=== PATIENT | female | born 2000 | race Two or more races ===

== ENCOUNTER 2024-05-09 19:16 | Emergency (ER) | payer MEDICAID, SELFPAY ==
[2024-05-09 19:17] VITALS: BMI 35.6
--- NOTE | 2024-05-09 20:07 | XR_ITS ---
Examination: Abdomen sonogram, Limited Date and time of exam: May 09, 2024 2016 hrs. Indications: Epigastric pain and nausea beginning today Technique: Real-time kumar scale transabdominal sonographic images of the upper abdomen obtained. Findings: Normal gallbladder Normal common bile duct 0.3 cm Pancreatic head 2.0 cm Liver 16.3 cm fatty infiltration no focal liver lesions Normal hepatopedal portal venous flow Patent IVC Impression: Normal gallbladder Fatty liver
--- NOTE | 2024-05-09 20:07 | PD.EDRME ---
Rapid Medical Screening Exam RME Arrival date/time: 05/09/24 19:16 Chief Complaint: Abdominal Pain Time Seen by Provider: 05/09/24 19:20 Vital signs: Vital Signs Temperature 98.6 F 05/09/24 20:08 Pulse Rate 71 05/09/24 20:08 Respiratory Rate 20 05/09/24 20:08 Blood Pressure 130/85 H 05/09/24 20:08 Pulse Oximetry (%) 98 05/09/24 20:08 Oxygen Delivery Method Room Air 05/09/24 20:08 [facility] Narrative: Epigastric pain, nausea since yesterday.
[2024-05-09 20:08] VITALS: BP 130/85; PULSE 71; RESP 20; TEMP 37; O2SAT 98
[2024-05-09 21:10] LABS: Collection Type, Urine Clean Catch
[2024-05-09 21:31] VITALS: BP 137/87; PULSE 63; RESP 18; TEMP 36.4; O2SAT 100
[2024-05-09 21:47] LABS: Bilirubin,Urine Negative (Negative); Blood,Urine Negative (Negative); Clarity,Urine Turbid (Clear/Hazy); Color,Urine Lt-Yellow (Lt Yel-Yel); Glucose, Urine Negative (Negative); Ketones,Urine Negative (Negative); Leukocyte Esterase,Urine Negative (Negative); Nitrite,Urine Negative (Negative); Protein,Urine Negative (Neg - Trace); RBC,Urine 9 /hpf (0-3); Specific Gravity,Urine 1.031 (1.001-1.035); Squamous Epithelial Cell,Urine 15 /hpf (0-5); Urobilinogen,Urine Negative mg/dL (0.0-1.0); WBC,Urine 2 /hpf (0-5)
[2024-05-09 21:57] LABS: Basophils # (Auto) 0.1 Thou/mm3 (0.0-0.2); Basophils % (Auto) 0 % (0-2.5); Eosinophils # (Auto) 0.1 Thou/mm3 (0.0-0.5); Eosinophils % (Auto) 1 % (0-10); Hematocrit 36.8 % (36.0-46.0); Immature Granulocytes % (Auto) 0 % (0-0); Immature Granulocytes Auto 0.04 Thou/mm3 (0.00-0.00); Lymphocytes # (Auto) 2.1 Thou/mm3 (1.0-4.8); Lymphocytes % (Auto) 16 % (10-50); Mean Corpuscular HGB Conc 32.6 g/dl (31.0-37.0); Mean Corpuscular Hemoglobin 26.5 pg (25.0-35.0); Mean Corpuscular Volume 81 fL (80-100); Monocytes # (Auto) 0.6 Thou/mm3 (0.0-0.8); Monocytes % (Auto) 4 % (0-12); Neutrophils # (Auto) 10.1 Thou/mm3 (1.8-7.7); Neutrophils % (Auto) 78 % (37-80); Nucleated Red Blood Cell % 0 /100 WBC (0); Platelet Count 201 Thou/mm3 (140-440); RDW Standard Deviation 39.5 fL (36.4-46.3); Red Blood Count 4.53 Miln/mm3 (4.00-5.20); White Blood Count 12.9 Thou/mm3 (3.6-11.0)
[2024-05-09 21:58] LABS: HCG Qualitative,Urine Negative
[2024-05-09 22:39] LABS: Alanine Aminotransferase 9 U/L (10-49); Albumin/Globulin Ratio 1.8 (1.2-2.2); Alkaline Phosphatase 53 U/L (46-116); Anion Gap 8 (7-16); Aspartate Amino Transferase < 10 U/L (0-34); BUN/Creatinine Ratio 15 Ratio (12-20); Bilirubin,Total 0.2 mg/dL (0.3-1.2); Blood Urea Nitrogen 12 mg/dL (9-23); Calcium 9.7 mg/dL (8.3-10.6); Calcium (Corrected) 9.7 mg/dL (8.5-10.1); Chloride 102 mMol/L (98-107); Creatinine (Component) 0.8 mg/dL (0.6-1.3); Estimated Creatinine Clearance 130.7 mL/min (>60); Globulin 2.8 gm/dL (2.3-3.5); Glucose 108 mg/dL (74-106); Lipase 49 U/L (12-53); Osmolality,Calculated 272 (275-295); Potassium 4.2 mMol/L (3.4-5.1); Sodium 136 mMol/L (136-145); Total Protein 7.8 gm/dL (5.7-8.2); eGFR > 60 See Note
--- NOTE | 2024-05-09 23:38 | XR_ITS ---
Examination: CT abdomen with intravenous contrast CT pelvis with intravenous contrast 2-D coronal reconstructions 2-D sagittal reconstructions Date and time of exam:May 10, 2024 at 0023 hours INDICATIONS: Onset abdominal pain nausea vomiting today. CTDI: vol (mGy) 13.51 DLP: (mGycm) 864 Technique: Multiple axial sections of the abdomen and pelvis have been obtained. 64 slice high-resolution scanner used. 3 mm axial sections have been obtained, post intravenous injection 60 cc [id number] 2-D sagittal, coronal reconstructions obtained. Low dose protocols were performed. One or more of the following dose reduction techniques were used; automated exposure control, adjustment of the mA and/or KV according to patient size, use of iterative reconstruction technique. Findings: No focal liver or splenic lesions Gastric sutures No gallstones No pancreatic or adrenal mass No renal or ureteral calculi, no hydronephrosis Aorta normal size Appendix measures 6 cm, no periappendiceal inflammatory change No pelvic abscess No bowel obstruction 6 cm left pelvic cyst Urinary bladder intact IMPRESSION: Minimal thickening of the appendix but no findings diagnostic for acute appendicitis Recommend pelvic sonography to assess the 6 cm left pelvic cystic mass
--- NOTE | 2024-05-09 23:40 | EDNOTE_ITS ---
ED Abdominal Pain RME/HPI General Chief Complaint: Abdominal Pain Stated complaint: abdominal pain, NV x 1 day Time seen by provider: 05/09/24 19:20 Arrival date/time: 05/09/24 19:16 RME / HPI RME / HPI narrative: Chief complaint: Epigastric pain, nausea since yesterday. HPI: Patient is a 24-year-old female with past medical history of gastric sleeve and obesity, who presented to the ED due to progressively worsening RUQ and epigastric pain which began around 10 AM today. Patient also has associated nausea, but no episodes of vomiting. Patient denies chest pain or dyspnea. No fevers, shakes, chills, sweats. Patient never had any of the symptoms in the past. She has irregular menstrual cycles, is sexually active. Her last bowel movement was around 7 AM on 05/09/2024. Patient is status post gastric sleeve and was concerned that this pain was involved with her prior surgery. No constipation. Allergies: NKFDA Social history: Marital?Status:?Single Tobacco?Use:?Denies ETOH?Use:?Denies Drug?Note:?Denies Social?History?Note:?Lives?at home with family Family history: Denies any family history of gastric/colon cancer, no sudden deaths. Related Data Previous Rx's ?Medication ?Instructions ?Recorded cyclobenzaprine 5 mg tablet 5 mg PO TID PRN muscle spasm #20 02/18/18 tabs naproxen 500 mg tablet 500 mg PO BID #20 tabs 02/18/18 ibuprofen 800 mg tablet 800 mg PO TID PRN pain #30 tabs 08/18/22 aluminum-mag hydroxide-simethicone 10 ml PO TID PRN indigestion #300 05/10/24 400 mg-400 mg-40 mg/5 mL oral susp mL (Antacid Anti-Gas) famotidine 20 mg tablet (Pepcid) 20 mg PO QDAY 10 days #10 tabs 05/10/24 Allergies Allergy/AdvReac Type Severity Reaction Status Date / Time No Known Allergies Allergy Verified 08/18/22 10:48 Review of Systems Review of Systems Narrative Review of Systems: GENERAL: Denies fevers/chills or diaphoresis. HEENT: Denies headache or visual/hearing changes. Denies nasal discharge. NEURO: Denies unusual weakness or difficulty speaking. CARDIO: Denies chest pain or palpitations. PULM: Denies SOB, coughing, or wheezing. GI: abdominal pain, nausea, no V/C/D. Reports having BMs URO: Denies burning/itching/pain/urinary changes. HOT WALKER: Denies menstrual changes, hot flashes. MSK/EXT/SKIN: Denies joint/skeletal/muscle pain, issues/changes in upper or lower extremities, itchiness, or superficial pain. PSYCH: Cooperative, pleasant mood & affect. The rest of the review of systems is otherwise negative. ED Exam Narrative Physical exam: GENERAL APPEARANCE: alert and oriented x 4, well-developed, well-nourished, no acute distress VITALS: All vitals were reviewed and the pulse ox is 100% on room air, which is normal according to my interpretation. HEENT: Normocephalic, atraumatic; pupils equal, round, reactive to light; EOMI; mucous membranes pink, moist; oropharynx clear NECK: Supple LUNGS: CTABL; no wheezes, no rales, no rhonchi HEART: Regular rate, regular rhythm; normal S1, S2; no murmurs ABDOMEN: non distended; normal BS; soft, no RLQ or suprapubic tenderness, no guarding, no rebound; no masses, no organomegaly, no hernia BACK: no CVA tenderness EXTREMITIES: atraumatic; no edema NEUROLOGIC: awake; alert and oriented x4; cranial nerves II-XII grossly intact; no focal sensory or motor deficits PSYCHIATRIC: appropriate mood and affect SKIN: warm, dry, normal color; no rashes Course Quality Measures none Orders Category Date Time Status CT Screening NOW Care 05/09/24 23:[address] abdomen pelvis w con Stat Exams 05/09/24 23:38 Taken US gall bladder Stat Exams 05/09/24 20:07 Completed CBC Stat Lab 05/09/24 21:35 Completed CMP [Comprehensive Metabolic Panel] Stat Lab 05/09/24 21:35 Completed HCG Qualitative,Urine Stat Lab 05/09/24 20:59 Completed Lipase Stat Lab 05/09/24 21:35 Completed UA [Urinalysis] Stat Lab 05/09/24 20:59 Completed Morphine Inj Med 05/09/24 23:58 Discontinued 2 mg IVP X1 ONE Piper/Tazo Inj [Zosyn Inj] 3.375 gm Med 05/10/24 01:39 Discontinued Sodium Chloride 0.9% (P) [Ns 0.9% (P)] 50 ml IV X1 Vital Signs Vital signs: Vital Signs Temperature 98.6 F 05/09/24 20:08 Pulse Rate 71 05/09/24 20:08 Respiratory Rate 20 05/09/24 20:08 Blood Pressure 130/85 H 05/09/24 20:08 Pulse Oximetry (%) 98 05/09/24 20:08 Oxygen Delivery Method Room Air 05/09/24 20:08 Abdominal Pain MDM MDM Narrative MDM Narrative:: Plan: Dr Hamilton to re-evaluate in the morning re: need to surgic Patient came to the emergency department with epigastric and periumbilical pain, acute onset with nausea but no vomiting. No other associated symptoms such as fever, shakes, chills, sweats, chest pain or dyspnea. Patient arrived with normal vital signs and remained with stable and normal vital signs throughout. Patient's exam was not particularly impressive for abdominal tenderness. A workup was ordered which included blood work, urine as well as a CT abdomen pelvis. Patient's CT was read by the radiologist as possibly showing a early appendicitis . On reexam the patient remains without right lower quadrant tenderness or tenderness throughout the abdomen. Patient was feeling better after medications and she was discharged home with strict instructions to return if she worsens or she does not improve by the morning, instructions to follow-up with her primary care doctor within the next several days. Etiology of the patient's pain remains unclear but she is clinically stable for discharge at this time Patient data External records reviewed:: None Clinical information provided by:: patient Social determinants that could affect healthcare access:: none Patient has the following chronic illnesses:: NIL How is presenting disease/condition affected by chronic disease/condition?: no chronic disease Evaluation data The following diagnostics were reviewed and interpreted by me:: lab results and radiology exam(s) Lab and/or radiology exams considered but not ordered:: none Interpretation Summary: Telerad Preliminary Report Draft Patient: SHUBHAM WOOD Record#: [id number] Birthdate: 2000 Age/Sex: 24 / F Location: [facility] Attending Dr: Ordering Physician: Date of Service: Procedure(s): Accession Number(s): cc: ~ CT scan of the abdomen and pelvis with intravenous contrast (axial sections with sagittal and coronal reformats) May 10, 2024 at 0023 hours Clinical History: Abdominal pain Comparison: No prior study is available for comparison. Findings: The lung bases are clear. The liver, gallbladder, pancreas, spleen, kidneys and adrenals are unremarkable. No evidence of bowel obstruction. Prominent distal tip of the appendix measuring 0.8 cm without peripheral fat stranding, no perforation, no collections. There is no mesenteric or retroperitoneal adenopathy. The urinary bladder is unremarkable. There is no free fluid or free air. The osseous structures are unremarkable. Status post gastric sleeve surgery. The uterus and ovaries are within normal limits. Impression: Possible early acute appendicitis. Please, correlate clinically. Discussion Details: Results verbally communicated to : Dr. Irby at 01:24 AM 05/10/2024 Report Electronically Signed By: Samuel Martin 05/10/2024 1:28:15 AM [EST] Medications / Prescriptions Medications or Prescriptions considered but not ordered:: Dilaudid Medication administrations:: Medication Administration History Discontinued Medications Piperacillin Sod/Tazobactam (Sod 3.375 gm/ Sodium Chloride) 50 mls @ 100 mls/hr IV X1 ONE Stop: 05/10/24 02:08 Last Admin: 05/10/24 02:11 Dose: 100 mls/hr Documented By: MANDO Morphine Sulfate (Morphine Sulf Inj 10 Mg/Ml Vial) 2 mg IVP X1 ONE Stop: 05/09/24 23:59 Last Admin: 05/10/24 00:10 Dose: 2 mg Documented By: MANDO see above Consultations Consultation(s) initiated? (list below): Yes Consultation #1 (Physician, Specialty, Details): Discussed case with [Dr. Winters] from [general surgery] regarding [consultation]. Discussed patients ED course, exam findings, labs, and radiology results. Recommends discharging the patient and having her come back for a recheck if her symptoms persist. Time: 02:18 Diagnosis Differential diagnosis abdominal pain: abdominal pain, constipation, diverticulitis, gastroenteritis and small bowel obstruction Most likely diagnosis given after review of the tests above:: see below Admission Indicated Admission indicated?: not indicated Admission Request Was there a request for admission?: No Disposition Plan Disposition Plan: Discharge Discharge Attestation Discharge Attestation: The patient and all family members were given an opportunity to ask questions and understood the discharge instructions. Discharge instructions specifically effects, indications for sooner follow up or return to the emergency department, and the expected course of current diagnosis. Patient condition: Stable Discharge Plan Plan Patient Disposition: HOME (Self Care) Disposition Comment: Stable for discharge Patient condition on transfer: Stable Prescriptions/Referrals Prescriptions/Med Rec: New famotidine [Pepcid] 20 mg tablet 20 mg PO QDAY 10 Days Qty: 10 0RF alum-mag hydroxide-simeth [Antacid Anti-Gas] 400-400-40 mg/5 mL suspension 10 ml PO TID PRN (Reason: indigestion) Qty: 300 0RF No Action naproxen 500 mg tablet 500 mg PO BID Qty: 20 0RF cyclobenzaprine 5 mg tablet 5 mg PO TID PRN (Reason: muscle spasm) Qty: 20 0RF ibuprofen 800 mg tablet 800 mg PO TID PRN (Reason: pain) Qty: 30 0RF Referrals: Milton Vasquez MD [Primary Care Provider] - In 1 week Problem List Clinical Impression: Abdominal pain Patient/Caregiver Discharge Instructions Discharge Activity: activity as tolerated Education Materials: Abdominal Pain Additional Instructions: Please return to the emergency department if you are not improving within 48 hours or if you are worsening in any way. You should pay attention to your body as you know yourself better than anybody. If you have nausea with vomiting or worsening belly pain tomorrow morning you should return to the ER Otherwise you should follow-up with your primary care doctor within the next s everal days Print Language: Icelandic Stand Alone Forms: [employer] Info., Patient Portal Info Letter
[2024-05-10 00:01] VITALS: BP 136/76; PULSE 71; RESP 19; TEMP 36.8
[2024-05-10] MEDS: MORPHINE SULF INJ 10 MG/ML VIAL 2 MG IVP (00:10)
--- NOTE | 2024-05-10 01:29 | PRELIM_ITS ---
CT scan of the abdomen and pelvis with intravenous contrast (axial sections with sagittal and coronal reformats) May 10, 2024 at 0023 hoursClinical History: Abdominal pain Comparison: No prior study is available for comparison.Findings:The lung bases are clear.The liver, gallbladder, pancreas, sple en, kidneys and adrenals are unremarkable.No evidence of bowel obstruction.Prominent distal tip of th e appendix measuring 0.8 cm without peripheral fat stranding, no perforation, no collections. There i s no mesenteric or retroperitoneal adenopathy.The urinary bladder is unremarkable. There is no free f luid or free air.The osseous structures are unremarkable.Status post gastric sleeve surgery.The uteru s and ovaries are within normal limits.Impression:Possible early acute appendicitis.Please, correlate clinically.Discussion Details: Results verbally communicated to : Dr. Irby at 01:24 AM 05/10/2024 Report Electronically Signed By: Samuel Martin 05/10/2024 1:28:15 AM [EST]
[2024-05-10] MEDS: PIPER/TAZO INJ 3.375 GM in SODIUM CHLORIDE 0.9% (P) 50 ML IV (02:11)
[2024-05-10 03:02] VITALS: BP 117/83; PULSE 71; RESP 18; TEMP 36.7; O2SAT 100
== END 2024-05-10 03:03 | disposition home or self-care (01) ==
PROVIDERS: Physician Assistant; Emergency Provider Emergency Medicine; PCP Family Medicine
DX: R10.13 Epigastric pain (principal); R11.2 Nausea with vomiting, unspecified
CPT/HCPCS: 36415; 74177; 76705; 80053; 81001; 81025; 83690; 85025; 96374; 99285; A4649; J2270; J2543; J7050; Q9967

== ENCOUNTER 2024-10-13 00:25 | Emergency (ER) | payer MEDICAID, SELFPAY ==
[2024-10-13 00:27] VITALS: BMI 36.4
[2024-10-13 00:33] VITALS: BP 125/76; PULSE 83; RESP 16; TEMP 37.2; O2SAT 100
[2024-10-13 01:44] LABS: Collection Type, Urine Clean Catch
[2024-10-13 02:09] LABS: Bacteria,Urine Rare; Bilirubin,Urine Negative (Negative); Blood,Urine Negative (Negative); Clarity,Urine Turbid (Clear/Hazy); Color,Urine Yellow (Lt Yel-Yel); Culture Indicated,Urine Contaminated; Glucose, Urine Negative (Negative); Ketones,Urine Negative (Negative); Leukocyte Esterase,Urine Positive (Negative); Nitrite,Urine Negative (Negative); Protein,Urine 1+ (Neg - Trace); RBC,Urine 64 /hpf (0-3); Specific Gravity,Urine 1.029 (1.001-1.035); Squamous Epithelial Cell,Urine 27 /hpf (0-5); Urobilinogen,Urine Negative mg/dL (0.0-1.0); WBC,Urine 131 /hpf (0-5)
[2024-10-13 02:13] LABS: HCG Qualitative,Urine Negative
[2024-10-13] MEDS: cefuroxime axetiL 250 MG TABLET 500 MG PO (02:29)
[2024-10-13 02:33] VITALS: RESP 18
--- NOTE | 2024-10-13 04:30 | EDNOTE_ITS ---
<Statement entered by Olga Grossman MD - 10/24/24 21:10> As co-signing physician, I was present and available for consult prn. I concur with the plan and care as documented by the midlevel provider. ED Female Urogenital RME/HPI General Chief complaint: Urogenital-Female Stated complaint: I FEEL LIKE I HAVE A UTI Time Seen by Provider: 10/13/24 00:49 Arrival date/time: 10/13/24 00:25 24F with no significant PMH presents to ED with 1 week of dysuria. Patient recently finished a course of Bactrim and yeast infection treatment w/o relief. Limitations: no limitations Related Data Previous Rx's ?Medication ?Instructions ?Recorded cyclobenzaprine 5 mg tablet 5 mg PO TID PRN muscle spa sm #20 02/18/18 tabs naproxen 500 mg tablet 500 mg PO BID #20 tabs 02/18 ibuprofen 800 mg tablet 800 mg PO TID PRN pain #30 t abs 08/18/22 aluminum-mag hydroxide-simethicone 10 ml PO TID PRN in digestion #300 05/10/24 400 mg-400 mg-40 mg/5 mL oral susp mL (Antacid Anti-Gas) cefuroxime axetil 500 mg tablet 500 mg PO BID 7 days # 14 tabs 10/13/24 Allergies Allergy/AdvReac Type Severity Reaction Status Date / Time No Known Allergies Allergy Verified 10/13/24 00:27 Review of Systems Review of Systems Systems Reviewed: All systems reviewed, normal except as documented Constitutional Constitutional: Reports system reviewed and no additional complaints, except as documented, Denies fever(s) and Denies headache(s) ENT Ears, Nose, Mouth, and Throat: Denies disequilibrium and Denies headache(s) Cardiovascular Cardiovascular: Reports system reviewed and no additional complaints, except as documented, Denies chest pain and Denies dyspnea Respiratory Respiratory: Reports system reviewed and no additional complaints, except as documented, Denies cough and Denies dyspnea Gastrointestinal Gastrointestinal: Reports system reviewed and no additional complaints, except as documented, Denies abdominal pain, Denies nausea and Denies vomiting Genitourinary Genitourinary: Reports as per HPI and Reports dysuria Neurologic Neurologic: Reports system reviewed and no additional complaints, except as documented, Denies confusion, Denies disequilibrium and Denies headache(s) Psychiatric Psychiatric: Denies confusion Past Medical History Past Medical History CARDIAC: Negative Cardiac Disorders or Congestive Heart Failure RESPIRATORY: Negative Chronic Obstructive Pulmonary Disease (COPD) or Asthma GENITOURINARY: Negative Renal Disease ENDOCRINE: Negative Diabetes Mellitus Type 1 or Diabetes Mellitus Type 2 HEMATOLOGIC: Negative Sickle Cell Disease Social History SMOKING STATUS: Never smoker SECOND HAND EXPOSURE: No ED Exam General Limitations: Present no limitations General appearance: Present alert and in no apparent distress Head Head exam: Present atraumatic Eye Eye exam: Present normal appearance, PERRL and EOMI ENT ENT exam: Present normal exam, normal oropharynx and mucous membranes moist Neck Neck exam: Present normal inspection, full ROM and trachea midline Chest Chest inspection: Present normal inspection and symmetric chest wall rise Respiratory Respiratory exam: Present normal lung sounds bilaterally Cardiovascular Cardiovascular exam: Present regular rate, normal rhythm and normal heart sounds Abdominal Exam Abdominal exam: Present soft and normal bowel sounds Extremities Exam Extremities exam: Present normal inspection and full ROM Back Exam Back exam: Present normal inspection and full ROM Neurological Exam Neurological exam: Present alert, oriented X3 and CN II-XII intact Psychiatric Psychiatric exam: Present normal affect and normal mood Skin Skin exam: Present warm, dry, intact and normal color Course Quality Measures none Orders Category Date Time Status HCG Qualitative,Urine Stat Lab 10/13/24 01:28 Completed Urinalysis, C/S if Indicated Stat Lab 10/13/24 01:28 Completed cefuroxime axetiL [cefUROXime axetil] Med 10/13/24 02:19 Discontinued 500 mg PO X1 ONE Vital Signs Vital signs: Vital Signs Temperature 99.0 F 10/13/24 00:33 Pulse Rate 83 10/13/24 00:33 Respiratory Rate 16 10/13/24 00:33 Blood Pressure 125/76 10/13/24 00:33 Pulse Oximetry (%) 100 10/13/24 00:33 Oxygen Delivery Method Room Air 10/13/24 00:33 O2 at 100% on RA and WNLs Urogenital - Female MDM Narrative MDM Narrative:: 24F with no significant PMH presents to ED with 1 week of dysuria. Patient recently finished a course of Bactrim and yeast infection treatment w/o relief. Physical exam reveals well-appearing female. Patient is afebrile, calm, and alert. UA, though contaminated, suggests UTI. Will treat given symptoms. Patient data External records reviewed:: [facility] previous records Clinical information provided by:: patient Social determinants that could affect healthcare access:: none Patient has the following chronic illnesses:: none How is presenting disease/condition affected by chronic disease/condition?: no chronic disease Evaluation data The following diagnostics were reviewed and interpreted by me:: lab results Lab and/or radiology exams considered but not ordered:: ordered Interpretation Summary: above Medications / Prescriptions Medications or Prescriptions considered but not ordered:: ordered Medication administrations:: Medication Administration History Discontinued Medications Cefuroxime Axetil (Cefuroxime Axetil 250 Mg Tablet) 500 mg PO X1 ONE Stop: 10/13/24 02:20 Last Admin: 10/13/24 02:29 Dose: 500 mg Documented By: CVL above Consultations Consultation(s) initiated? (list below): No Diagnosis Urogenital Female Differential Diagnosis: urinary tract infection, bacterial vaginosis, trichomoniasis, cervicitis, ovarian cyst, vaginitis, ruptured ovarian cyst, cyst of Bartholin's gland, cystitis and dysmenorrhea Most likely diagnosis given after review of the tests above:: UTI Admission Indicated Admission indicated?: not indicated Admission Request Was there a request for admission?: No Disposition Plan Disposition Plan: Discharge Discharge Attestation Discharge Attestation: The patient and all family members were given an opportunity to ask questions and understood the discharge instructions. Discharge instructions specifically effects, indications for sooner follow up or return to the emergency department, and the expected course of current diagnosis. Patient condition: Stable Discharge Plan Plan Patient Disposition: HOME (Self Care) Discharge Disposition comment: Stable Prescriptions/Referrals Prescriptions/Med Rec: New cefuroxime axetil 500 mg tablet 500 mg PO BID 7 Days Qty: 14 0RF No Action naproxen 500 mg tablet 500 mg PO BID Qty: 20 0RF cyclobenzaprine 5 mg tablet 5 mg PO TID PRN (Reason: muscle spasm) Qty: 20 0RF ibuprofen 800 mg tablet 800 mg PO TID PRN (Reason: pain) Qty: 30 0RF alum-mag hydroxide-simeth [Antacid Anti-Gas] 400-400-40 mg/5 mL suspension 10 ml PO TID PRN (Reason: indigestion) Qty: 300 0RF Referrals: Alex Saxena FNP [Primary Care Provider] - In 1 week Problem List Clinical Impression: Urinary tract infection Patient/Caregiver Discharge Instructions Education Materials: ED CYSTITIS Female Adult Additional Instructions: Please follow-up with PCP within 24-48 hours and return immediately if symptoms worsen. Print Language: Arabic Stand Alone Forms: Patient Portal Info Letter PA/TENTER Supervising Physician PA/TENTER Supervising Physician: Dr. Grossman
== END 2024-10-13 02:34 | disposition home or self-care (01) ==
PROVIDERS: Physician Assistant; Emergency Provider Emergency Medicine
DX: N39.0 Urinary tract infection, site not specified (principal)
CPT/HCPCS: 81001; 81025; 99283; A9270

== ENCOUNTER 2025-04-15 08:58 | Emergency (ER) | payer MEDICAID, SELFPAY ==
[2025-04-15 08:58] VITALS: BP 123/83; PULSE 90; RESP 19; TEMP 36.8; O2SAT 99
[2025-04-15 09:08] VITALS: PULSE 96; O2SAT 100
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
== END 2025-04-15 14:09 | disposition home or self-care (01) ==
PROVIDERS: Emergency Provider Nurse Practitioner Family
DX: R07.9 Chest pain, unspecified (principal); V89.2XXA Person injured in unspecified motor-vehicle accident, traffic, initial encounter
CPT/HCPCS: 71046; 99282